=== PATIENT | female | born 1950 | race Caucasian/White ===

== ENCOUNTER 2016-11-07 20:33 | Inpatient (IN) | payer OTHER, MEDICARE ==
[~2016-11-07] VITALS: Ht 149.9 cm; Wt 96.6 kg
[~2016-11-07 20:33] MED LIST: ADALAT CC30 MG PO; LASIX20 MG PO; NEXIUM40 MG PO; SYNTHROID0.112 MG PO
[2016-11-07 20:39] VITALS: BP 121/102
--- NOTE | 2016-11-07 21:45 | NUR ---
PT TAKEN TO BED 4
--- NOTE | 2016-11-07 21:58 | NUR ---
65 Y/O HERE C/O SOB AND CHEST DISCONFORT X 1 MONTH. DENIES ANY CHEST PAIN AT THE MOMENT. O2 SAT 97%, TACHY. SLIGLTY WHEEZING / DIMINISHED BILERTAL. ER MD NOTIFIED. PT ON DIAL MARKER.
[2016-11-07] MEDS ORDERED: ASPIRIN 81 MG TAB.CHEW PO ONE (22:00)
--- NOTE | 2016-11-07 22:07 | NUR ---
Dr. Lechuga evaluating patient at bedside.
[2016-11-07] MEDS ORDERED: ALBUTEROL 0.083% 2.5 MG/3 ML NEBU INH ONE (22:15)
[2016-11-07] MEDS ORDERED: IPRATROPIUM 0.02% 0.5 MG/2.5 ML NEBU INH ONE (22:15)
--- NOTE | 2016-11-07 22:33 | NUR ---
RT AT BEDSIDE
--- NOTE | 2016-11-07 23:15 | NUR ---
PT RESTING, DENIES ANY PAIN. ER MD AWARED OF HR 128. PER ER MD NO NEW ORDERS TO BE GIVEN AT THE MOMENT.
[2016-11-08] MEDS ORDERED: FUROSEMIDE 40 MG/4 ML VIAL IVP ONE
--- NOTE | 2016-11-08 00:15 | NUR ---
PER PATIENT, WILL HAVE SISTER BRING HOME MEDICATIONS TMRW
[2016-11-08] MEDS ORDERED: DILTIAZEM 25 MG/5 ML VIAL IVP ONE (01:05)
--- NOTE | 2016-11-08 01:49 | NUR ---
Note mason in ED - 11/08/16 at 0149 by LUIS ANGEL Patient will be admitted to care of . Admited to TELEMETRY. Will go to room 120B. Belongings list completed. Report to Fermin JIMENEZ RN
[2016-11-08] MEDS ORDERED: ONDANSETRON 4 MG/2 ML VIAL IVP PRN (01:50)
[2016-11-08] MEDS ORDERED: MORPHINE SULFATE 2 MG/ML SYR IVP PRN (01:50)
--- NOTE | 2016-11-08 01:50 | NUR ---
Patient will be admitted to care of . Admited to TELEMETRY. Will go to room 120B. Belongings list completed. Report to Fermin JIMENEZ RN
--- NOTE | 2016-11-08 02:00 | NUR ---
ER MD NOTIFIED OF PT'S POTASSIUM LEVEL. PER ER MD NO NEW ORDERS AT THIS TIME.
--- NOTE | 2016-11-08 02:06 | NUR ---
PT TRANSFERRED TO THE FLOOR BY KRISTYN OLIVIA, AND RAMO SINGH, VIA [facility]. MUSHROOM FARMER ON BED.
--- NOTE | 2016-11-08 02:10 | NUR ---
Admitted from E.. with chief complaint of SHORTNESS OF BREATH. A 65 y/o. Female, Appropriate. ALERT AWAKE ORIENTED X4. INITIAL ASSESSMENT DONE. NO S/S OF RESPIRATORY DISTRESS OR SOB NOTED. C/O PAIN ON BOTH FEET SCALING 6/10. MEDICATED PRN NORCO ORDERED. SKIN IS INTACT CLEAN DRY AND WARM TO TOUCH. PT HAS RAY CATHTER BY GRAVITY AND DRAINING WELL. PLAN OF CARE REVIEWED TO PT AND VERBALIZED UNDERSTANDING. oriented to call light, bed, phone,television, bathroom, smoking policy, visiting hours, procedures, ID bracelet on. Belongings list checked. CALL LIGHT WITHIN REACH. WILL CONTINUE TO MONITOR.
[2016-11-08] MEDS: HYDROcodone/APAP 7.5/325 MG 1 TAB PO PRN ×2 (02:33→12:27)
--- NOTE | 2016-11-08 03:00 | NUR ---
PT REFUSED TO WEAR SCD'S D/T SHE'S UNCOMFORTABLE WITH IT. SHE SAID, SHE JUST WANT TO GO TO SLEEP RIGHT NOW. SHE PROMISED TO WEAR IT AFTER BREAKFAST. WILL CONTINUE TO MONITOR.
[2016-11-08 04:00] VITALS: BP 108/55
--- NOTE | 2016-11-08 04:06 | NUR ---
PT C/O ITCHINESS ALL OVER THE BODY MOST ESPECIALLY ON HER NECK DOWN TO THE CHEST. CALLED DR. KILPATRICK AND NOTIFIED AND NEW ORDERS WERE GIVEN (PLS SEE CPOE). NEW ORDERS NOTED AND CARRIED OUT. WILL CONTINUE TO MONITOR.
[2016-11-08] MEDS: diphenhydrAMINE 12.5 MG/5 ML UDC PO PRN (04:54)
--- NOTE | 2016-11-08 05:45 | NUR ---
AM CARE RENDERED. BED LINEN CHANGED. INSTRUCTED PT TO REPOSITION. KEPT CLEAN AND DRY. CALL LIGHT WITHIN REACH. WILL CONTINUE TO MONITOR.
[2016-11-08] MEDS ORDERED: LEVOTHYROXINE 0.112 MG TAB PO SCH (06:30)
--- NOTE | 2016-11-08 06:30 | NUR ---
PT IS ON SCD'S RIGHT NOW AND TOLERATED WELL. WILL CONTINUE TO MONITOR.
--- NOTE | 2016-11-08 07:30 | NUR ---
PT HAS NO S/S OF ANY DISCOMFORT. PLAN OF CARE ENDORSED TO OLY SIMONS AT BEDSIDE FOR CONTINUITY OF CARE.
--- NOTE | 2016-11-08 07:31 | NUR ---
RECEIVED REPORT FROM CLINICAL DOCUMENTATION CLERK NURSE. PT IS AAOX4, DENIES PAIN/DISCOMFORT AT THIS TIME. SKIN IS DRY AND INTACT. IV IS PATENT AND INTACT. RAY CATHETER IS FLOWING VIA GRAVITY. PT IS ON 2 L OF O2 VIA NC, VITALS STABLE. CALL LIGHT WITHIN REACH. WILL CONTINUE TO MONITOR.
[2016-11-08 08:00] VITALS: BP 107/81
--- NOTE | 2016-11-08 08:36 | NUR ---
PATIENT HAS BEEN SCREENED AND CATEGORIZED HIGH NUTRITION RISK. PATIENT WILL BE SEEN WITHIN 1-2 DAYS OF ADMISSION. 11/08/16-11/09/[address]
[2016-11-08] MEDS: DOCUSATE SODIUM 100 MG GELCAP PO SCH (08:52)
[2016-11-08] MEDS ORDERED: PANTOPRAZOLE 40 MG INJ VIAL IVP SCH (09:00)
[2016-11-08] MEDS ORDERED: NIFEdipine 30 MG TABER PO SCH (09:00)
[2016-11-08] MEDS ORDERED: FUROSEMIDE 40 MG/4 ML VIAL IVP SCH (09:00)
--- NOTE | 2016-11-08 09:00 | NUR ---
PT BACK FROM UNIT FROM CT. PT CARLO WELL. MEDS ADMINISTER. NIFEDIPINE HELD DUE TO DECREASED BP.
--- NOTE | 2016-11-08 09:30 | NUR ---
CM NOTE INITIAL REVIEW FAXED TO [facility] / FAX# [phone], C: [phone]
[2016-11-08] MEDS ORDERED: ALBUTEROL 0.083% 2.5 MG/3 ML NEBU INH PRN (10:50)
[2016-11-08] MEDS ORDERED: CARVEDILOL 3.125 MG TAB PO SCH (10:55)
[2016-11-08 12:00] VITALS: BP 108/84
[2016-11-08] MEDS ORDERED: FLUCONAZOLE 100 MG TAB PO SCH (12:00)
[2016-11-08] MEDS ORDERED: OXYBUTYNIN 5 MG TAB PO SCH (12:00)
[2016-11-08] MEDS ORDERED: METOPROLOL 25 MG TAB PO SCH ×4 (12:00→21:00)
[2016-11-08] MEDS ORDERED: ATORVASTATIN 20 MG TAB PO SCH (12:00)
[2016-11-08] MEDS ORDERED: CALCIUM CARBONATE 500 MG TAB PO SCH (12:00)
[2016-11-08] MEDS ORDERED: ESTROGENS CONJUGATED 0.625 MG TAB PO SCH (12:00)
--- NOTE | 2016-11-08 12:10 | NUR ---
PT CARLO MEDS WELL.
--- NOTE | 2016-11-08 13:50 | NUR ---
RECIVED PT ON 2LPM NC AWAKE ALERT NO SOB NOTED PT REQUESTED HHN SAYS SHE FELT CONGESTED HR HIGH 120 T0 135 RN AWARE MONITORED HR DURING HHN HR REMAINED IN MIDDLE TO HIGH 120 HHN GIVEN NO ILL EFFECTS NOTED
[2016-11-08] MEDS ORDERED: POTASSIUM CHLORIDE 10 MEQ TABER PO SCH (14:00)
[2016-11-08] MEDS ORDERED: MAGNESIUM OXIDE 400 MG TAB PO SCH (14:00)
--- NOTE | 2016-11-08 14:45 | NUR ---
PT SEEN AND EVALUATED BY DR. GARCIA.
--- NOTE | 2016-11-08 15:36 | NUR ---
PT WITH DRY COUGH AT THIS TIME LEFT CUP AT BEDSIDE WITH INSTRUCT TO EXPECTORATE INTO CUP WILL FPLLOW UP
[2016-11-08 16:00] VITALS: BP 118/78
[2016-11-08] MEDS ORDERED: ALBUTEROL SULFATE/IPRATROPIU 3 ML SOL IH PRN (16:00)
[2016-11-08] MEDS ORDERED: MAG SULF 2000 MG/WATER PREMIX 50 ML IV SCH (16:10)
--- NOTE | 2016-11-08 16:12 | NUR ---
VITALS REMAIN STABLE, WILL CONTINUE TO MONITOR.
[2016-11-08] MEDS ORDERED: CILOSTAZOL 100 MG TAB PO SCH (16:30)
[2016-11-08] MEDS: RIVAROXABAN 10 MG TAB PO SCH (17:11)
[2016-11-08] MEDS: PIPER/TAZO 3.375GM/D5W PREMIX 50 ML IV SCH ×2 (17:12→23:39)
[2016-11-08] MEDS: FUROSEMIDE 40 MG/4 ML VIAL IVP SCH (17:13)
[2016-11-08] MEDS ORDERED: FLUCONAZOLE 100 MG TAB ONE (17:40)
--- NOTE | 2016-11-08 18:20 | NUR ---
PT SEEN AND EVAL BY DR. EDEN.
[2016-11-08] MEDS: ALBUTEROL SULFATE/IPRATROPIU 3 ML SOL IH SCH (18:57)
--- NOTE | 2016-11-08 19:01 | NUR ---
PT RECEIVING BREATHING TREATMENT AT THIS TIME, NO DISTRESS NOTED. TOLERATING WELL. RT AT BEDSIDE.
--- NOTE | 2016-11-08 19:04 | NUR ---
RECEIVED PT FROM TIFFANIE SIMONS AT BEDSIDE FOR CONTINUITY OF CARE. PT NOTED STABLE.
--- NOTE | 2016-11-08 19:10 | NUR ---
ENDORSED TO REAL ESTATE INSTRUCTOR FOR CONTINUITY OF CARE IN STABLE CONDITION.
--- NOTE | 2016-11-08 19:36 | NUR ---
SHIFT ASSESSMENT DONE. PT IS STABLE, NO S/S OF ACUTE DISTRESS. PT IS A/O X4, FOLLOWS COMMAND AND ABLE TO VERBALIZE NEEDS. DISCUSSED PLAN OF CARE WITH PT, VERBALIZED UNDERSTANDING. VITAL SIGNS ARE STABLE, PT ON 2L NASAL CANNULA WITH OXYGEN SATURATION AT 96%. PT IS AFEBRILE, DENIES FEVER/CHILLS, SOB, CHEST PAIN, AND N/V/D. NO RESPIRATORY DISTRESS NOTED. SKIN INTACT. IV ACCESS TO RT AC #20G, PATENT AND INTACT. SCD'S IN PLACE. SAFETY AND FALL RISK PRECAUTIONS IN PLACE. CALL LIGHT WITHIN REACH. WILL CONTINUE TO MONITOR. ALL NEEDS MET.
[2016-11-08 20:00] VITALS: BP 116/92
[2016-11-08] MEDS: SACCHAROMYCES 250 MG CAP PO SCH (21:17)
[2016-11-08] MEDS: methylPREDNISolone SS 40 MG/ML VIAL IVP SCH (21:17)
--- NOTE | 2016-11-08 21:17 | NUR ---
PROVIDE PT WITH PM SCHEDULED MEDICATIONS, CALL LIGHT WITHIN REACH. WILL CONTINUE TO MONITOR PT.
[2016-11-08] MEDS: ACETAMINOPHEN 325 MG TAB PO PRN (21:22)
--- NOTE | 2016-11-08 23:39 | NUR ---
PT VITAL SIGNS REMAIN STABLE, PT STILL DENIES CHEST PAIN, NAUSEA, AND SOB AT THIS TIME. CALL LIGHT WITHIN REACH. WILL CONTINUE TO MONITOR PT.
[2016-11-09] VITALS: BP 113/78
[2016-11-09] MEDS: ALBUTEROL SULFATE/IPRATROPIU 3 ML SOL IH SCH ×4 (00:16→18:55)
--- NOTE | 2016-11-09 02:14 | NUR ---
PT STABLE, NO ACUTE DISTRESS NOTED. WATCHING TV. CANNULA IN PLACE. CALL LIGHT WITHIN REACH.
--- NOTE | 2016-11-09 02:35 | NUR ---
MADE DR. KILPATRICK AWARE OF PT HAVING BLOOD IN URINE VIA RAY CATHETER, ALSO MADE AWARE PT ON BLOOD THINNER FOR A.FIB. NO NEW ORDERS RECEIVED. PHYSICIAN TO SEE PT.
--- NOTE | 2016-11-09 03:35 | NUR ---
PT VITAL SIGNS REMAIN STABLE, PT SLEEPING WELL. NO ACUTE S/S OF DISTRESS. PT DENIES CHEST PAIN OR SOB. CALL LIGHT WITHIN REACH.
[2016-11-09 04:00] VITALS: BP 108/74
[2016-11-09] MEDS: methylPREDNISolone SS 40 MG/ML VIAL IVP SCH ×3 (05:07→21:04)
[2016-11-09] MEDS: PIPER/TAZO 3.375GM/D5W PREMIX 50 ML IV SCH ×4 (05:07→23:39)
[2016-11-09] MEDS: LEVOTHYROXINE 0.075 MG TAB PO SCH ×2 (05:07→07:35)
--- NOTE | 2016-11-09 07:15 | NUR ---
ENDORSED PT TO TIFFANIE SIMONS FOR CONTINUITY OF CARE. PT STABLE, NO DISTRESS.
--- NOTE | 2016-11-09 07:16 | NUR ---
RECEIVED REPORT FROM PRODUCTION SOUND MIXER NURSE. PT IS AAOX4, DENIES PAIN/DISCOMFORT AT THIS TIME. SKIN IS DRY AND INTACT. IV IS PATENT AND INTACT. RAY IS PATENT AND FLOWING VIA GRAVITY, DARK RED URINE NOTED. AWARE, PER PRODUCTION SOUND MIXER NURSE. PT IS ON 2L OF O2 VIA NC, VITALS STABLE. CALL LIGHT WITHIN REACH. WILL CONTINUE TO MONITOR.
--- NOTE | 2016-11-09 07:38 | NUR ---
PATIENT PRESENTING WITH STRONG MOIST COUGH PLACED SPECIMEN CUP ON BEDSIDE TABLE EDUCATION PROVIDED WITH ACKNOWLEDGEMENT ON SPUTUM COLLECTION PATIENT ACCOUNTS COORDINATOR TO NOTIFY RN
[2016-11-09 08:00] VITALS: BP 110/68
[2016-11-09] MEDS: FUROSEMIDE 40 MG/4 ML VIAL IVP SCH ×2 (08:45→16:22)
[2016-11-09] MEDS: CALCIUM CARBONATE 500 MG TAB PO SCH (08:46)
[2016-11-09] MEDS: ASPIRIN 81 MG TAB.CHEW PO SCH (08:46)
[2016-11-09] MEDS: SACCHAROMYCES 250 MG CAP PO SCH ×2 (08:46→21:04)
[2016-11-09] MEDS: OXYBUTYNIN 5 MG TAB PO SCH (08:46)
[2016-11-09] MEDS: METOPROLOL 25 MG TAB PO SCH ×4 (08:46→18:37)
[2016-11-09] MEDS: DOCUSATE SODIUM 100 MG GELCAP PO SCH (08:46)
[2016-11-09] MEDS: ATORVASTATIN 20 MG TAB PO SCH (08:47)
[2016-11-09] MEDS: PANTOPRAZOLE 40 MG TABEC PO SCH (08:47)
[2016-11-09] MEDS: ESTROGENS CONJUGATED 0.625 MG TAB PO SCH (08:47)
[2016-11-09] MEDS: LISINOPRIL 20 MG TAB PO SCH (08:48)
[2016-11-09] MEDS: SPIRONOLACTONE 25 MG TAB PO SCH (08:48)
--- NOTE | 2016-11-09 08:54 | NUR ---
PT CARLO MEDS WELL. BP MEDS HELD DUE TO DECREASED BP.
[2016-11-09] MEDS ORDERED: METOPROLOL 25 MG TAB PO SCH (09:00)
[2016-11-09] MEDS ORDERED: FUROSEMIDE 40 MG TAB PO SCH (09:00)
--- NOTE | 2016-11-09 09:54 | NUR ---
RAY REMOVED, PT CARLO WELL. WILL CONTINUE TO MONITOR.
--- NOTE | 2016-11-09 10:50 | NUR ---
PT VOIDED, DENIES DISCOMFORT.
--- NOTE | 2016-11-09 11:00 | NUR ---
PT SEEN AND EVALUATED BY PHYS THERAPY. PT CARLO WELL.
--- NOTE | 2016-11-09 11:00 | NUR ---
INFORMED MD OF +MRSA.
--- NOTE | 2016-11-09 11:18 | NUR ---
CM NOTE INITIAL REVIEW FAXED TO [facility] / FAX# [phone], C: [phone]
[2016-11-09] MEDS ORDERED: MUPIROCIN 2% OINT 22 GM TUBE TP SCH (11:26)
[2016-11-09] MEDS: CHLORHEXADINE GLUC 2% CLOTH TP SCH (11:34)
[2016-11-09 12:00] VITALS: BP 108/80
[2016-11-09] MEDS: MUPIROCIN 2% OINT 22 GM TUBE TP SCH (12:02)
--- NOTE | 2016-11-09 13:35 | NUR ---
AWAKE AND ALERT RESPONSIVE TO COMPOSITION SIDING WORKER VERBAL COMMANDS IN HFW POSITION ENCOURAGED DEEP BREATH AND COUGH DURING HHN THERAPY Addendum: 11/09/16 at 1350 by Enrique Montiel RT PATIENT C/O OF NASAL DRYNESS POST HHN THERAPY ADDED HUMIDIFIER
--- NOTE | 2016-11-09 14:04 | NUR ---
11/09/16 RD INITIAL ASSESSMENT COMPLETED PLEASE REFER TO NUTRITION ASSESSMENT UNDER CARE ACTIVITY FOR ESTIMATED NUTRITIONAL NEEDS. RD RECOMMENDATIONS: 1. RECOMMEND CHANGE DIET TO CARDIAC 2. PT MEETING >100% OF ESTIMATED KCAL AND PROTEIN NEEDS 3. RD WILL F/U 3-5 DAYS; MODERATE RISK. AALIYAH LORENZ RD
[2016-11-09] MEDS ORDERED: DIGOXIN 0.25 MG/ML AMP IV SCH (14:59)
--- NOTE | 2016-11-09 15:24 | NUR ---
ADMINISTERED DIGOXIN PRESCRIBED. WILL CONTINUE TO MONITOR.
[2016-11-09 16:00] VITALS: BP 114/84
[2016-11-09] MEDS: RIVAROXABAN 10 MG TAB PO SCH (16:22)
[2016-11-09] MEDS: diphenhydrAMINE 12.5 MG/5 ML UDC PO PRN (17:02)
--- NOTE | 2016-11-09 17:05 | NUR ---
ALL NEEDS MET AT THIS TIME.
--- NOTE | 2016-11-09 19:05 | NUR ---
RECEIVED PT REPORT FROM TIFFANIE SIMONS AT PT BEDSIDE FOR CONTINUITY OF CARE. PT NOTED STABLE, AMBULATING IN ROOM FROM BATHROOM TO BED. NO S/S OF DISTRESS NOTED. CALL LIGHT WITHIN REACH.
--- NOTE | 2016-11-09 19:26 | NUR ---
SHIFT ASSESSMENT DONE AT THIS TIME. PT NOTED STABLE, NO S/S OF ACUTE DISTRESS. IS A/O X4, ABLE TO FOLLOW COMMAND AND ABLE TO VERBALIZE NEEDS. DISCUSSED PLAN OF CARE WITH PT, VERBALIZED UNDERSTANDING. VITAL SIGNS ARE STABLE, PT ON ROOM AIR WITH OXYGEN SATURATION AT 96%. PT IS AFEBRILE, DENIES FEVER/CHILLS, SOB, CHEST PAIN, AND N/V/D. NO RESPIRATORY DISTRESS NOTED. LUNG SOUNDS ARE CLEAR. SKIN INTACT. IV ACCESS TO LT HAND #22G, PATENT AND INTACT. SCD'S IN PLACE. SAFETY AND FALL RISK PRECAUTIONS IN PLACE. CALL LIGHT WITHIN REACH. WILL CONTINUE TO MONITOR. ALL NEEDS MET. PT ON CONTACT PRECAUTIONS.
[2016-11-09 20:00] VITALS: BP 110/66
--- NOTE | 2016-11-09 20:33 | NUR ---
SPOKE TO DR. HOANG REGARDING PT AND ORDERS, NEW ORDERS RECEIVED. Addendum: 11/10/16 at 0110 by Anne Hauser RN WRONG PT.
[2016-11-09] MEDS: ACETAMINOPHEN 325 MG TAB PO PRN (21:03)
[2016-11-09] MEDS: AMIODARONE 200 MG TAB PO SCH (21:04)
--- NOTE | 2016-11-09 21:04 | NUR ---
PROVIDED PM SCHEDULED MEDICATIONS, TOLERATED WELL. NO DISTRESS NOTED. CALL LIGHT WITHIN REACH. PT DENIES CHEST PAIN. WILL CONTINUE TO MONITOR.
[2016-11-09] MEDS ORDERED: DEXTROSE 50% 50 ML SYR IVP PRN (22:00)
--- NOTE | 2016-11-09 23:40 | NUR ---
PT VITAL SIGNS REMAIN STABLE, PT C.O. LEFT ARM PAIN, ASSESSED AREA NO S/S OF SWELLING OR REDNESS. IV SITE INTACT. WILL PROVIDE PAIN MEDICATION, SEE eMAR. CALL LIGHT WITHIN EASY REACH.
[2016-11-10] VITALS: BP 103/66
[2016-11-10] MEDS: HYDROcodone/APAP 7.5/325 MG 1 TAB PO PRN (00:17)
[2016-11-10] MEDS: ALBUTEROL SULFATE/IPRATROPIU 3 ML SOL IH SCH ×4 (01:05→19:33)
--- NOTE | 2016-11-10 02:02 | NUR ---
NOTED PT SLEEPING WELL, NO DISTRESS. CALL LIGHT WITHIN REACH.
[2016-11-10 04:00] VITALS: BP 103/55
--- NOTE | 2016-11-10 04:00 | NUR ---
PT VITAL SIGNS ARE STABLE, NO S/S OF ACUTE DISTRESS NOTED. CALL LIGHT WITHIN EASY REACH.
[2016-11-10] MEDS: methylPREDNISolone SS 40 MG/ML VIAL IVP SCH ×3 (05:49→22:04)
[2016-11-10] MEDS: METOPROLOL 25 MG TAB PO SCH (05:50)
[2016-11-10] MEDS: LEVOTHYROXINE 0.075 MG TAB PO SCH (05:50)
[2016-11-10] MEDS: PIPER/TAZO 3.375GM/D5W PREMIX 50 ML IV SCH ×3 (05:52→17:16)
[2016-11-10] MEDS: BLOOD GLUCOSE MONITORING 1 DEV DEV FS SCH ×4 (05:58→21:00)
--- NOTE | 2016-11-10 07:00 | NUR ---
ENDORSED PT ELSA RN FOR AT BEDSIDE FOR CONTINUITY OF CARE. PT NOTED STABLE, NO S/S OF ACUTE DISTRESS.
--- NOTE | 2016-11-10 07:04 | NUR ---
RECEIVED REPORT FROM NIGHT RN. PT RESTING IN BED. AAOX4. NO S/S OF ACUTE DISTRESS. PT DENIES PAIN. IV SITE PATENT AND INTACT. CALL LIGHT WITHIN REACH. RT AT BEDSIDE. WILL CONTINUE TO MONITOR.
[2016-11-10 08:00] VITALS: BP 106/85
[2016-11-10] MEDS: SPIRONOLACTONE 25 MG TAB PO SCH (09:00)
[2016-11-10] MEDS: FUROSEMIDE 40 MG/4 ML VIAL IVP SCH ×2 (09:00→17:15)
[2016-11-10] MEDS: LISINOPRIL 20 MG TAB PO SCH (09:00)
--- NOTE | 2016-11-10 09:08 | NUR ---
FAXED CONCURRENT REVIEW TO [facility] [phone] PHONE [phone]
[2016-11-10] MEDS: ASPIRIN 81 MG TAB.CHEW PO SCH (09:24)
[2016-11-10] MEDS: ESTROGENS CONJUGATED 0.625 MG TAB PO SCH (09:24)
[2016-11-10] MEDS: ATORVASTATIN 20 MG TAB PO SCH (09:24)
[2016-11-10] MEDS: FLUCONAZOLE 200 MG/NS PREMIX 100 ML IV SCH (09:24)
[2016-11-10] MEDS: SACCHAROMYCES 250 MG CAP PO SCH ×2 (09:25→22:04)
[2016-11-10] MEDS: CALCIUM CARBONATE 500 MG TAB PO SCH (09:25)
[2016-11-10] MEDS: OXYBUTYNIN 5 MG TAB PO SCH (09:25)
[2016-11-10] MEDS: AMIODARONE 200 MG TAB PO SCH ×2 (09:25→22:09)
[2016-11-10] MEDS: PANTOPRAZOLE 40 MG TABEC PO SCH (09:25)
[2016-11-10] MEDS: DOCUSATE SODIUM 100 MG GELCAP PO SCH (09:25)
--- NOTE | 2016-11-10 10:04 | NUR ---
PT SLEEPING IN BED. NO S/S OF ACUTE DISTRESS. PT TOLERATED AM MEDS WELL. SISTER AT BEDSIDE. CALL LIGHT WITHIN REACH. WILL CONTINUE TO MONITOR.
[2016-11-10 12:00] VITALS: BP 125/84
[2016-11-10] MEDS: CHLORHEXADINE GLUC 2% CLOTH TP SCH (12:01)
[2016-11-10] MEDS: MUPIROCIN 2% OINT 22 GM TUBE TP SCH (12:45)
--- NOTE | 2016-11-10 13:00 | NUR ---
PT RESTING IN BED. NO S/S OF ACUTE DISTRESS. PT DENIES PAIN. CALL LIGHT WITHIN REACH. SAFETY MEASURES ENSURED. WILL CONTINUE TO MONITOR.
--- NOTE | 2016-11-10 15:59 | NUR ---
PT RESTING IN BED. NO S/S OF ACUTE DISTRESS. PT DENIES PAIN. CALL LIGHT WITHIN REACH. SAFETY MEASURES ENSURED. WILL CONTINUE TO MONITOR.
[2016-11-10 16:00] VITALS: BP 112/88
[2016-11-10] MEDS: DILTIAZEM 30 MG TAB PO SCH (17:15)
[2016-11-10] MEDS: RIVAROXABAN 10 MG TAB PO SCH (17:20)
[2016-11-10] MEDS ORDERED: METOPROLOL 25 MG TAB PO SCH ×3 (19:00)
--- NOTE | 2016-11-10 19:09 | NUR ---
ENDORSED PLAN OF CARE TO NIGHT RN. PT REMAINS IN STABLE CONDITION.
--- NOTE | 2016-11-10 19:15 | NUR ---
RECEIVED PT FROM ELSA RN PT IS AAOX4 ONBILATERAL SEQUENTIAL STOCKING ON TEL UNCONTROLLED AFIB, , HL ON LEF ARM INITIAL ASSESSMENT DONE
[2016-11-10 20:00] VITALS: BP 100/75
[2016-11-10] MEDS: METOPROLOL 50 MG TAB PO SCH (21:00)
--- NOTE | 2016-11-10 22:00 | NUR ---
PT RESTING ON BED UNCONTROLLED AFIB DENIES ANY PAIN OR DISCOMFORT
[2016-11-11] VITALS: BP 115/92
[2016-11-11] MEDS: PIPER/TAZO 3.375GM/D5W PREMIX 50 ML IV SCH ×5 (00:30→23:56)
--- NOTE | 2016-11-11 01:00 | NUR ---
SLEEPING WELL NOT SOB NOTED UNCONTROLLED TETE,
[2016-11-11] MEDS: ALBUTEROL SULFATE/IPRATROPIU 3 ML SOL IH SCH ×2 (01:05→07:44)
[2016-11-11 04:00] VITALS: BP 116/92
--- NOTE | 2016-11-11 04:00 | NUR ---
SPONGE BATH GIVEN LINEN CHANGED REPOSITIONED Q2H ON TELE UNCONTROLLED AFIB
[2016-11-11] MEDS: methylPREDNISolone SS 40 MG/ML VIAL IVP SCH ×2 (06:02→12:18)
[2016-11-11] MEDS: BLOOD GLUCOSE MONITORING 1 DEV DEV FS SCH ×4 (06:08→20:59)
[2016-11-11] MEDS: LEVOTHYROXINE 0.075 MG TAB PO SCH (06:08)
[2016-11-11] MEDS: ACETAMINOPHEN 325 MG TAB PO PRN (06:11)
--- NOTE | 2016-11-11 06:43 | NUR ---
PT RESTING ON BED AFTER TYLENOL GIVEN FOR HEADACHE PT WILL BE MONITORING ON TELEMETRY UNCONTROLLED AFIC
--- NOTE | 2016-11-11 07:00 | NUR ---
RECEIVE PT IN BED , ALERT, ORIENTED X4, RESPIRATION UNLABORED, NO SIGNS OF ACUTE DISTRESS, SKIN INTACT WARM, AND DRY, NO EPISODES OF ABDOMINAL DISTRESS, HEMATURIA NOTED MD AWARE, PT AMBULATES INDEPENDENTLY, NO COMPLAINTS OF PAIN AT THIS TIME, GENERALIZED SAFETY PRECAUTIONS IN PLACE, ON CONTACT PRECAUTION, CALL LIGHT IN REACH, WILL CONTINUE TO MONITOR.
[2016-11-11] MEDS: SPIRONOLACTONE 25 MG TAB PO SCH (08:43)
[2016-11-11] MEDS: ESTROGENS CONJUGATED 0.625 MG TAB PO SCH (08:44)
[2016-11-11] MEDS: DILTIAZEM 30 MG TAB PO SCH ×3 (08:44→15:23)
[2016-11-11] MEDS: ATORVASTATIN 20 MG TAB PO SCH (08:44)
[2016-11-11] MEDS: SACCHAROMYCES 250 MG CAP PO SCH ×2 (08:44→20:55)
[2016-11-11] MEDS: ASPIRIN 81 MG TAB.CHEW PO SCH (08:44)
[2016-11-11] MEDS: LISINOPRIL 20 MG TAB PO SCH (08:45)
[2016-11-11] MEDS: OXYBUTYNIN 5 MG TAB PO SCH (08:46)
[2016-11-11] MEDS: DOCUSATE SODIUM 100 MG GELCAP PO SCH (08:46)
[2016-11-11] MEDS: PANTOPRAZOLE 40 MG TABEC PO SCH (08:46)
[2016-11-11] MEDS: CALCIUM CARBONATE 500 MG TAB PO SCH (08:46)
[2016-11-11] MEDS: AMIODARONE 200 MG TAB PO SCH ×2 (08:46→20:56)
[2016-11-11] MEDS: FLUCONAZOLE 200 MG/NS PREMIX 100 ML IV SCH (08:47)
[2016-11-11] MEDS: FUROSEMIDE 40 MG/4 ML VIAL IVP SCH ×2 (08:47→17:20)
[2016-11-11] MEDS: METOPROLOL 50 MG TAB PO SCH ×2 (08:47→20:55)
[2016-11-11 09:06] VITALS: BP 130/77
[2016-11-11] MEDS: CHLORHEXADINE GLUC 2% CLOTH TP SCH (11:24)
[2016-11-11 12:00] VITALS: BP 111/74
[2016-11-11] MEDS: MUPIROCIN 2% OINT 22 GM TUBE TP SCH (12:19)
--- NOTE | 2016-11-11 15:23 | NUR ---
WAS SEEN BY DR. BARAHONA, RECEIVED ORDER TO GIVE CARDIZEM NOW. NOTED AND CARRIED OUT
[2016-11-11 16:00] VITALS: BP 128/82
--- NOTE | 2016-11-11 16:48 | NUR ---
WAS SEEN BY DR. LONG, NEW MED ORDER RECEIVED. NOTED AND CARRIED OUT.
[2016-11-11] MEDS: RIVAROXABAN 10 MG TAB PO SCH (17:21)
--- NOTE | 2016-11-11 18:53 | NUR ---
PT AWAKE, ALERT, DENIES ANY PAIN OR DISCOMFORT, TO ENDORSE TO ONCOMING TOOL AND DIE TECHNICIAN NURSE. FOR CONTINUITY OF CARE.
--- NOTE | 2016-11-11 19:11 | NUR ---
RECEIVED PT IN STABLE CONDITION FROM KRISTYN PALMA. NO SOB, NO SIGNS OF DISTRESS. VS STABLE ON ROOM AIR. PT IS AOX4, AMBULATORY. PT DENIES PAIN AT THIS TIME. PT STATES SHE STILL HAS SOME HEMATURIA. IV TO LT HAND 22G PATENT, ASYMPTOMATIC, INTACT, SALINE LOCKED. PT C/O RASH ON UPPER CHEST, SKIN NOTED TO BE DRY. PROVIDED PT WITH LOTION, SKIN IS INTACT. WILL ENDORSE TO AM SHIT TO MAKE MD AWARE OF RASH. PLAN OF CARE DISCUSSED WITH PT. SAFETY MEASURES IN PLACE. CALL LIGHT WITHIN REACH. WILL CONTINUE TO MONITOR.
[2016-11-11 20:00] VITALS: BP 106/67
--- NOTE | 2016-11-11 20:59 | NUR ---
PT TOLERATED DUE MEDS WELL. NO SOB, NO SIGNS OF DISTRESS. IV SITE ASYMPTOMATIC, INTACT SALINE LOCKED. PT DENIES PAIN AT THIS TIME. PLAN OF CARE DISCUSSED WITH PT. SAFETY MEASURES IN PLACE. CALL LIGHT WITHIN REACH. WILL CONTINUE TO MONITOR.
--- NOTE | 2016-11-11 21:34 | NUR ---
PT REQUESTED BREATHING TREATMENT. SPOKE WITH RT GERALDO. GERALDO TO SEE PT.
--- NOTE | 2016-11-11 22:43 | NUR ---
PT ASLEEP IN BED. NO SOB, NO SIGNS OF DISTRESS. IV SITE ASYMPTOMATIC, INTACT, SALINE LOCKED. SAFETY MEASURES IN PLACE. CALL LIGHT WITHIN REACH. WILL CONTINUE TO MONITOR.
[2016-11-12] VITALS: BP 108/73
--- NOTE | 2016-11-12 | NUR ---
VS STABLE ON ROOM AIR, PT REQUESTED SANDWICH, PROVIDED PT WITH SANDWICH. TOLD PT WE WILL BE SWITCHING HER TO AN ISOLATION ROOM. PT VERBALIZED UNDERSTANDING. IV SITE ASYMPTOMATIC, INTACT, PATENT, IVPB RUNNING. PLAN OF CARE DISCUSSED WITH PT. SAFETY MEASURES IN PLACE. CALL LIGHT WITHIN REACH. WILL CONTINUE TO MONITOR.
--- NOTE | 2016-11-12 01:47 | NUR ---
PT REQUESTED SLEEP AID, SPOKE WITH MD CHANEY. MADE AWARE, STATED SHE WILL LOOK INTO CHART AND PUT IN ORDERS.
[2016-11-12] MEDS ORDERED: diphenhydrAMINE 50 MG CAP PO SCH (01:50)
--- NOTE | 2016-11-12 03:03 | NUR ---
GAVE PT BENADRYL PO PER MD ORDER. PT TOLERATED WELL. NO SOB, NO SIGNS OF DISTRESS. IV SITE ASYMPTOMATIC, INTACT, PATENT, IVF RUNNING TKO. PLAN OF CARE DISCUSSED WITH PT. SAFETY MEASURES IN PLACE. CALL LIGHT WITHIN REACH. WILL CONTINUE TO MONITOR.
[2016-11-12 04:00] VITALS: BP 129/77
--- NOTE | 2016-11-12 04:08 | NUR ---
VS STABLE ON ROOM AIR. IV SITE ASYMPTOMATIC, INTACT, PATENT, IVF RUNNING TKO. PT DENIES PAIN AT THIS TIME. PLAN OF CARE DISCUSSED WITH PT. SAFETY MEASURES IN PLACE. CALL LIGHT WITHIN REACH. WILL CONTINUE TO MONITOR.
[2016-11-12] MEDS: LEVOTHYROXINE 0.075 MG TAB PO SCH (05:36)
[2016-11-12] MEDS: PIPER/TAZO 3.375GM/D5W PREMIX 50 ML IV SCH ×4 (05:36→23:46)
[2016-11-12] MEDS: BLOOD GLUCOSE MONITORING 1 DEV DEV FS SCH ×4 (06:32→20:46)
--- NOTE | 2016-11-12 07:00 | NUR ---
PT ASLEEP IN BED, AWAKEN WHEN CALLED BY NAME. ALERT ORIENTED X 4. NO SOB, NO COUGHING OR SIGNS OF CONGESTION NOTED. BREATHING EVEN AND UNLABORED. SKIN INTACT. INITIAL VITAL SIGNS TAKEN AND RECORDED, HR 138. BOWEL SOUNDS PRESENT ON FOUR QUADRANTS. DENIES ANY PAIN OR DISCOMFORT AT THIS TIME. VERBALIZED SHE SLEPT GOOD LAST NIGHT. IV SALINE LOCK IN PLACE ON LEFT HAND G22, NO SWELLING OR SIGNS OF INFILTRATION NOTED. VOIDING WITH HEMATURIA, NO BLADDER DISTENTION NOTED ON PALPATION. AMBULATORY. MAINTAINED ON SAFETY PRECAUTION. CALL LIGHT ON REACH, LOW BED.
--- NOTE | 2016-11-12 07:11 | NUR ---
ENDORSED PT IN STABLE CONDITION TO KRISTYN PALMA. ALL NEEDS HAVE BEEN MET AT THIS TIME.
--- NOTE | 2016-11-12 07:32 | NUR ---
DURING ASSESSMENT PT WAS ON ROOM AIR, SPO2 95%. B.S CLEAR NO PRN TX NEEDED AT THIS TIME. PT WILL REMAIN ON ROOM AIR AND WILL CONTINUE TO MONITOR.
[2016-11-12 07:43] VITALS: BP 108/81
[2016-11-12] MEDS: FUROSEMIDE 40 MG/4 ML VIAL IVP SCH ×2 (08:56→17:20)
[2016-11-12] MEDS: SACCHAROMYCES 250 MG CAP PO SCH ×2 (08:58→20:45)
[2016-11-12] MEDS: ASPIRIN 81 MG TAB.CHEW PO SCH (08:58)
[2016-11-12] MEDS: DILTIAZEM 30 MG TAB PO SCH ×3 (08:59→17:21)
[2016-11-12] MEDS: CALCIUM CARBONATE 500 MG TAB PO SCH (08:59)
[2016-11-12] MEDS: AMIODARONE 200 MG TAB PO SCH ×2 (08:59→20:45)
[2016-11-12] MEDS: DOCUSATE SODIUM 100 MG GELCAP PO SCH (08:59)
[2016-11-12] MEDS: SPIRONOLACTONE 25 MG TAB PO SCH (08:59)
[2016-11-12] MEDS: OXYBUTYNIN 5 MG TAB PO SCH (09:00)
[2016-11-12] MEDS ORDERED: methylPREDNISolone SS 40 MG/ML VIAL IVP SCH (09:00)
[2016-11-12] MEDS: LISINOPRIL 20 MG TAB PO SCH (09:00)
[2016-11-12] MEDS: ATORVASTATIN 20 MG TAB PO SCH (09:00)
[2016-11-12] MEDS: PANTOPRAZOLE 40 MG TABEC PO SCH (09:00)
[2016-11-12] MEDS: ESTROGENS CONJUGATED 0.625 MG TAB PO SCH (09:00)
[2016-11-12] MEDS: METOPROLOL 50 MG TAB PO SCH ×2 (09:01→20:46)
[2016-11-12] MEDS: FLUCONAZOLE 200 MG/NS PREMIX 100 ML IV SCH (09:01)
--- NOTE | 2016-11-12 09:45 | NUR ---
WAS SEEN BY DR. SHAH. CONTINUE TO MONITOR.
[2016-11-12] MEDS: CHLORHEXADINE GLUC 2% CLOTH TP SCH (11:48)
[2016-11-12 12:00] VITALS: BP 106/79
[2016-11-12] MEDS: MUPIROCIN 2% OINT 22 GM TUBE TP SCH (12:00)
[2016-11-12 16:00] VITALS: BP 116/80
[2016-11-12] MEDS: RIVAROXABAN 10 MG TAB PO SCH (17:22)
--- NOTE | 2016-11-12 18:14 | NUR ---
WAS SEEN BY DR. LONG, NEW ORDERS RECEIVED. NOTED AND CARRIED OUT.
--- NOTE | 2016-11-12 18:17 | NUR ---
NEW LAB ORDERS RECEIVED FROM DR. SHAH. NOTED AND CARRIED OUT.
--- NOTE | 2016-11-12 19:06 | NUR ---
PT ALERT AND RESPONSIVE, NO SIGNS OF ACUTE DISTRESS. ENDORSED TO ONCOMING GEODETIC ADVISOR NURSE FOR CONTINUITY OF CARE.
--- NOTE | 2016-11-12 19:12 | NUR ---
RECEIVED PT IN STABLE CONDITION FROM KRISTYN PALMA. NO SOB, NO SIGNS OF DISTRESS. VS STABLE. PT ON 2L O2 NC. PT IS AOX4, AMBULATORY. PT DENIES PAIN AT THIS TIME. PT STATES SHE STILL HAS SOME LIGHT HEMATURIA. IV TO LT HAND 22G PATENT, ASYMPTOMATIC, INTACT, SALINE LOCKED. SKIN IS INTACT. PLAN OF CARE DISCUSSED WITH PT. SAFETY MEASURES IN PLACE. CALL LIGHT WITHIN REACH. WILL CONTINUE TO MONITOR.
[2016-11-12 20:00] VITALS: BP 108/66
--- NOTE | 2016-11-12 20:46 | NUR ---
PT TOLERATED DUE MEDS WELL. NO SOB, NO SIGNS OF DISTRESS. IV SITE ASYMPTOMATIC, INTACT SALINE LOCKED. PT DENIES PAIN AT THIS TIME. PT REQUESTED A SANDWICH AND DRINKS, PROVIDED PT WITH A SANDWICH, WATER AND JUICE. PLAN OF CARE DISCUSSED WITH PT. SAFETY MEASURES IN PLACE. CALL LIGHT WITHIN REACH. WILL CONTINUE TO MONITOR.
--- NOTE | 2016-11-12 22:34 | NUR ---
PT ASLEEP IN BED. NO SOB, NO SIGNS OF DISTRESS. PT ON 2L O2 NC. IV SITE ASYMPTOMATIC, INTACT, SALINE LOCKED. SAFETY MEASURES IN PLACE. CALL LIGHT WITHIN REACH. WILL CONTINUE TO MONITOR.
--- NOTE | 2016-11-12 23:46 | NUR ---
VS STABLE. PT ON 2L O2 NC. IV SITE ASYMPTOMATIC, INTACT, PATENT, IVPB RUNNING. PT DENIES PAIN AT THIS TIME. PLAN OF CARE DISCUSSED WITH PT. SAFETY MEASURES IN PLACE. CALL LIGHT WITHIN REACH. WILL CONTINUE TO MONITOR
[2016-11-13] VITALS: BP 120/74
[2016-11-13 04:00] VITALS: BP 117/80
--- NOTE | 2016-11-13 04:15 | NUR ---
VS STABLE. PT ON 2L O2 NC. IV SITE ASYMPTOMATIC, INTACT, PATENT, IVF RUNNING TKO. PT DENIES PAIN AT THIS TIME. PLAN OF CARE DISCUSSED WITH PT. SAFETY MEASURES IN PLACE. CALL LIGHT WITHIN REACH. WILL CONTINUE TO MONITOR.
[2016-11-13] MEDS: LEVOTHYROXINE 0.075 MG TAB PO SCH (06:07)
[2016-11-13] MEDS: BLOOD GLUCOSE MONITORING 1 DEV DEV FS SCH ×2 (06:16→11:52)
--- NOTE | 2016-11-13 07:20 | NUR ---
ENDORSED PT IN STABLE CONDITION TO KRISTYN LUO. ALL NEEDS HAVE BEEN MET AT THIS TIME.
--- NOTE | 2016-11-13 07:21 | NUR ---
RECEIVED PT AWAKE, AAOX4 WITH O2 AT 2LPM VIA NC, NO S/S OF DISTRESS AT THIS TIME. WITH IV ACCESS AT LEFT HAND 22G ON SALINE LOCK PATENT AND INTACT. SKIN IS INTACT. DISCUSSED PLAN OF CARE, PT VERBALIZED UNDERSTANDING. SAFETY PRECAUTIONS ENFORCED. CALL LIGHT WITHIN REACH, WILL CONTINUE TO MONITOR.
[2016-11-13 08:00] VITALS: BP 127/93
[2016-11-13] MEDS: ESTROGENS CONJUGATED 0.625 MG TAB PO SCH (08:45)
[2016-11-13] MEDS: ATORVASTATIN 20 MG TAB PO SCH (08:46)
[2016-11-13] MEDS: AMIODARONE 200 MG TAB PO SCH (08:46)
[2016-11-13] MEDS: OXYBUTYNIN 5 MG TAB PO SCH (08:46)
[2016-11-13] MEDS: FUROSEMIDE 40 MG/4 ML VIAL IVP SCH (08:46)
--- NOTE | 2016-11-13 08:46 | NUR ---
DUE MEDS GIVEN, PT TOLERATED WELL. ALL NEEDS MET AT THIS TIME. CALL LIGHT WITHIN REACH, WILL CONTINUE TO MONITOR.
[2016-11-13] MEDS: METOPROLOL 50 MG TAB PO SCH (08:47)
[2016-11-13] MEDS: SPIRONOLACTONE 25 MG TAB PO SCH (08:47)
[2016-11-13] MEDS: SACCHAROMYCES 250 MG CAP PO SCH (08:47)
[2016-11-13] MEDS: DILTIAZEM 30 MG TAB PO SCH ×2 (08:47→12:11)
[2016-11-13] MEDS: PANTOPRAZOLE 40 MG TABEC PO SCH (08:47)
[2016-11-13] MEDS: LISINOPRIL 20 MG TAB PO SCH (08:47)
[2016-11-13] MEDS: DOCUSATE SODIUM 100 MG GELCAP PO SCH (08:47)
[2016-11-13] MEDS: ASPIRIN 81 MG TAB.CHEW PO SCH (08:48)
[2016-11-13] MEDS: CALCIUM CARBONATE 500 MG TAB PO SCH (08:48)
[2016-11-13] MEDS: FLUCONAZOLE 200 MG/NS PREMIX 100 ML IV SCH (08:48)
[2016-11-13] MEDS ORDERED: methylPREDNISolone SS 40 MG/ML VIAL IVP SCH (09:00)
--- NOTE | 2016-11-13 10:11 | NUR ---
CM NOTE INITIAL REVIEW FAXED TO [facility] / FAX# [phone], C: [phone]
--- NOTE | 2016-11-13 10:15 | NUR ---
RECEIVED REPORT FROM KRISTYN LUO. PT IS AAOX4, DENIES PAIN/DISCOMFORT AT THIS TIME. IV IS PATENT AND INTACT. SKIN IS DRY AND INTACT. PT IS ON 2L OF O2 VIA NC, VITALS STABLE. CALL LIGHT WITHIN REACH. WILL CONTINUE TO MONITOR.
[2016-11-13] MEDS: CHLORHEXADINE GLUC 2% CLOTH TP SCH (10:59)
[2016-11-13] MEDS: MUPIROCIN 2% OINT 22 GM TUBE TP SCH (11:32)
[2016-11-13 12:00] VITALS: BP 103/78
--- NOTE | 2016-11-13 12:15 | NUR ---
VITALS REMAIN STABLE. WILL CONTINUE TO MONITOR.
[2016-11-13] MEDS ORDERED: OSCAL500 MG PO (12:17)
[2016-11-13] MEDS ORDERED: CARDIZEM30 M1 PO ×2 (12:17→12:30)
[2016-11-13] MEDS ORDERED: ALDACTONE25 M1 PO (12:17)
[2016-11-13] MEDS ORDERED: XARELTO10 MG PO (12:17)
[2016-11-13] MEDS ORDERED: ATORVASTATIN CA20 MG PO (12:17)
[2016-11-13] MEDS ORDERED: CORDARONE200 M1 PO ×2 (12:17→12:30)
[2016-11-13] MEDS ORDERED: SYNTHROID0.075 M1 PO (12:17)
[2016-11-13] MEDS ORDERED: ASPIRIN ADULT L81 M1 PO (12:17)
[2016-11-13] MEDS ORDERED: LISINOPRIL20 M1 PO (12:17)
[2016-11-13] MEDS ORDERED: LASIX10 MG/M2 IVP (12:18)
[2016-11-13] MEDS ORDERED: LOPRESSOR50 M2 PO (12:20)
[2016-11-13] MEDS ORDERED: FLORASTOR 33 MG1 CAP PO (12:21)
[2016-11-13] MEDS ORDERED: AUGMENTIN 500 M1 TAB PO (12:26)
[2016-11-13] MEDS ORDERED: MEDROL4 M1 PO (12:26)
[2016-11-13] MEDS ORDERED: LASIX40 MG PO (12:45)
--- NOTE | 2016-11-13 14:10 | NUR ---
D/C INSTRUCTIONS EXPLAINED. PT VERBALIZED UNDERSTANDING. PRESCRIPTIONS IS PT'S POSSESSION. IV REMOVED WITH CANNULA INTACT. TELE MONITOR REMOVED. PT WAS WHEELED OUT OF HOSP BY SEMICONDUCTOR WAFERS MARKER IN STABLE CONDITION. PER PT, PT WAS TO BE PICKED UP BY SISTER, VIRAJ.
== END 2016-11-13 14:10 | disposition home or self-care (01) | DRG 137 ==
LOC: MED 20:33 → MTU 11-08 01:15
PROVIDERS: ADMIT Family Medicine; ATTEND Family Medicine
DX: J69.0 Pneumonitis due to inhalation of food and vomit (principal); J96.20 Acute and chronic respiratory failure, unspecified whether with hypoxia or hypercapnia; N17.0 Acute kidney failure with tubular necrosis; I50.43 Acute on chronic combined systolic (congestive) and diastolic (congestive) heart failure; E44.0 Moderate protein-calorie malnutrition; I42.0 Dilated cardiomyopathy; K76.0 Fatty (change of) liver, not elsewhere classified; I48.91 Unspecified atrial fibrillation; Z68.41 Body mass index [BMI] 40.0-44.9, adult; J44.1 Chronic obstructive pulmonary disease with (acute) exacerbation; E11.9 Type 2 diabetes mellitus without complications; I42.9 Cardiomyopathy, unspecified; N39.0 Urinary tract infection, site not specified; E83.42 Hypomagnesemia; E87.6 Hypokalemia; E83.51 Hypocalcemia; E03.9 Hypothyroidism, unspecified; K21.9 Gastro-esophageal reflux disease without esophagitis; K44.9 Diaphragmatic hernia without obstruction or gangrene; K80.80 Other cholelithiasis without obstruction; M19.90 Unspecified osteoarthritis, unspecified site; G89.29 Other chronic pain; E66.9 Obesity, unspecified; I11.0 Hypertensive heart disease with heart failure; M54.5 Low back pain; I25.10 Atherosclerotic heart disease of native coronary artery without angina pectoris; B37.3 Candidiasis of vulva and vagina; I25.2 Old myocardial infarction; Z79.01 Long term (current) use of anticoagulants; Z87.891 Personal history of nicotine dependence